=== PATIENT | male | born 1955 | race Caucasian/White ===

== ENCOUNTER 2024-10-09 12:44 | Inpatient (IN) | payer OTHER ==
[2024-10-09] MEDS ORDERED: MAGNESIUM HYDROX 2400MG/30ML ORAL SUSPENSION 30 ML CUP PO PRN (15:08)
[2024-10-09] MEDS ORDERED: IBUPROFEN 400 MG TABLET (FP) PO PRN (15:08)
[2024-10-09] MEDS ORDERED: MAG HYDROX/AL HYDROX/SIMETH 30 ML UNIT-DOSE CUP PO PRN (15:08)
[2024-10-09] MEDS ORDERED: BENZONATATE 200 MG CAPSULE PO PRN (15:08)
[2024-10-09] MEDS ORDERED: POLYETHYLENE GLYCOL (HEALTHYLAX) 3350 17 GM PACKET PO PRN (15:08)
[2024-10-09] MEDS ORDERED: LOPERAMIDE HCL 2 MG CAPSULE PO PRN (15:08)
[2024-10-09] MEDS ORDERED: NALOXONE (NARCAN) HCL 4 MG/0.1 ML SPRAY NS PRN (15:08)
[2024-10-09] MEDS ORDERED: guaiFENesin 600 MG TABLET.ER (FP) PO PRN (15:08)
[2024-10-09 16:49] VITALS: BMI 23.2
[2024-10-09 20:22] LABS: PH,URINE 7.5 (5.0-8.0); URINE APPEARANCE CLEAR; URINE BILIRUBIN NEGATIVE (NEGATIVE); URINE COLOR YELLOW; URINE GLUCOSE (UA) NEGATIVE (NEGATIVE); URINE KETONE NEGATIVE (NEGATIVE); URINE LEUK ESTERASE NEGATIVE (NEGATIVE); URINE NITRITE NEGATIVE (NEGATIVE); URINE PROTEIN NEGATIVE (NEGATIVE); URINE UROBILINOGEN 0.2 mg/dL (0.2-1.0)
[2024-10-09] MEDS: hydrOXYzine PAMOATE 25 MG CAPSULE (FP) PO PRN (21:39)
[2024-10-09] MEDS: THIAMINE 100 MG TABLET PO SCH (21:39)
[2024-10-09] MEDS: MELATONIN 5 MG TABLETS PO SCH (21:39)
[2024-10-10] MEDS: ACETAMINOPHEN 325 MG TABLET (FP) PO PRN (05:19)
[2024-10-10] MEDS: PRENATAL VITAMINS W/ FOLIC ACID TABLET (FP) PO SCH (09:21)
[2024-10-10 11:12] LABS: HEMATOCRIT 36.2 % (35.4-49); HEMOGLOBIN 12.5 GM/dL (11.7-16.9); MCH 33.4 pg (25.7-33.7); MCHC 34.6 g/dl (32.0-35.9); MEAN CELL VOLUME 96.7 fl (80-96); MEAN PLT VOLUME 7.9 fl (7.5-11.1); PLATELET COUNT 227 10^3/uL (134-434); RBC 3.75 M/mm3 (4.00-5.60); RDW 12.9 % (11.9-15.9); WHITE BLOOD COUNT 5.9 K/mm3 (4.0-10.0)
[2024-10-10 11:34] LABS: CHLORIDE 106 mmol/L (98-107); POTASSIUM 4.3 mmol/L (3.5-5.1); SODIUM 140 mmol/L (136-145)
[2024-10-10 11:38] LABS: ALBUMIN 3.1 g/dl (3.4-5.0); ANION GAP 5 mmol/L (4-13); BLOOD UREA NITROGEN 24.2 mg/dL (7-18); CALCIUM 9.4 mg/dL (8.5-10.1); CO2 29 mmol/L (21-32); GLUCOSE,RANDOM 87 mg/dL (74-106)
[2024-10-10 11:40] LABS: CREATININE 0.7 mg/dL (0.55-1.3); SGOT/AST 16 U/L (15-37); SGPT/ALT 16 U/L (13-61)
[2024-10-10 11:42] LABS: BILIRUBIN,TOTAL 0.2 mg/dL (0.2-1); TOT PROT 5.6 g/dl (6.4-8.2)
[2024-10-10 11:43] LABS: ALK PHOS 63 U/L (45-117)
[2024-10-10 11:46] LABS: SYPHILIS W/ RPR CONF NON-REACTIVE (NONREACTIVE)
[2024-10-10] MEDS: BENZOCAINE/MENTHOL (CHLORASEPTIC ) LOZENGE MM PRN (15:43)
[2024-10-10] MEDS ORDERED: OXYMETAZOLINE 0.05% NASAL SOLUTION 15 ML BOTTLE NS PRN (16:05)
[2024-10-11 11:32] LABS: INR 0.86 (0.83-1.09); PROTHROMBIN TIME (PATIENT) 9.9 SEC (9.7-13.0)
[2024-10-12] MEDS: HYDROCORTISONE 1% TOPICAL OINT 30 GM TUBE TP PRN (17:14)
[2024-10-12] MEDS ORDERED: traZODone HCL 50 MG TABLET (FP) PO PRN (22:00)
[2024-10-13] MEDS: hydrOXYzine PAMOATE 25 MG CAPSULE (FP) PO PRN (10:27)
[2024-10-18] MEDS: CHOLECALCIFEROL (VIT D3) 400 UNIT (10 MCG) TABLET PO SCH (16:33)
[2024-10-18] MEDS: NALTREXONE HCL 50 MG TABLET PO ONE (16:34)
[2024-10-19] MEDS: NALTREXONE HCL 50 MG TABLET PO SCH (10:36)
[2024-10-24] MEDS: traZODone HCL 50 MG TABLET (FP) PO PRN (01:07)
[2024-10-24] MEDS ORDERED: NALTREXONE MICROSPHERES (VIVITROL) 380 MG DISP.SYRIN IM ONE (06:00)
[2024-10-29] MEDS: BENZOCAINE 20 % GEL TUBE MM PRN (13:13)
[2024-10-29] MEDS: IBUPROFEN 600 MG TABLET (FP) PO PRN (15:36)
[2024-11-05 06:56] VITALS: RESP 16
[2024-11-06 06:29] VITALS: BP 110/69; PULSE 69; TEMP 97.3
== END 2024-11-06 10:06 | disposition home or self-care (01) | DRG 895 ==
LOC: YASAS 12:44 → Y3NR 16:55 → Y3W 10-10 10:05
PROVIDERS: ADMIT Psychiatry & Neurology Pain Medicine; ATTEND Psychiatry & Neurology Pain Medicine
PROC: HZ42ZZZ Group Counseling for Substance Abuse Treatment, Cognitive-Behavioral (ICD-10-PCS; principal; 2024-10-09)
DX: F10.20 Alcohol dependence, uncomplicated (principal); F19.282 Other psychoactive substance dependence with psychoactive substance-induced sleep disorder; F19.280 Other psychoactive substance dependence with psychoactive substance-induced anxiety disorder; F12.20 Cannabis dependence, uncomplicated; F17.210 Nicotine dependence, cigarettes, uncomplicated; F41.9 Anxiety disorder, unspecified; L40.9 Psoriasis, unspecified
CPT/HCPCS: 0241U-QW; 36415; 80053; 80305; 80307; 81003; 82140; 82652; 83735; 85027; 85610; 86780; 86803; 87811; 93005; 93010

== ENCOUNTER 2024-11-20 12:07 | Inpatient (IN) | payer OTHER ==
[2024-11-20] MEDS: SODIUM CHLORIDE 0.9% 500 ML INFUS.BAG IV ONE (13:30)
[2024-11-20] MEDS ORDERED: P-EPHED 60MG/TRIPROLIDI 2.5MG TABLET PO PRN (20:33)
[2024-11-20] MEDS ORDERED: NALOXONE (NARCAN) HCL 4 MG/0.1 ML SPRAY NS PRN (20:33)
[2024-11-20] MEDS ORDERED: MAGNESIUM HYDROX 2400MG/30ML ORAL SUSPENSION 30 ML CUP PO PRN (20:33)
[2024-11-20] MEDS ORDERED: ACETAMINOPHEN 325 MG TABLET (FP) PO PRN (20:33)
[2024-11-20] MEDS ORDERED: MAG HYDROX/AL HYDROX/SIMETH 30 ML UNIT-DOSE CUP PO PRN (20:33)
[2024-11-20] MEDS ORDERED: IBUPROFEN 400 MG TABLET (FP) PO PRN (20:33)
[2024-11-20] MEDS ORDERED: POLYETHYLENE GLYCOL (HEALTHYLAX) 3350 17 GM PACKET PO PRN (20:33)
[2024-11-20] MEDS ORDERED: BISMUTH SUBSALICYLATE 524 MG/30 ML PO PRN (20:33)
[2024-11-20] MEDS ORDERED: guaiFENesin 600 MG TABLET.ER (FP) PO PRN (20:33)
[2024-11-20] MEDS ORDERED: BENZONATATE 200 MG CAPSULE PO PRN (20:33)
[2024-11-20] MEDS ORDERED: BENZOCAINE/MENTHOL (CHLORASEPTIC ) LOZENGE MM PRN (20:33)
[2024-11-20] MEDS ORDERED: ONDANSETRON *ODT* 4 MG TABLET SL PRN (20:33)
[2024-11-20] MEDS ORDERED: NICOTINE POLACRILEX 2 MG LOZENGE BC PRN (20:33)
[2024-11-20] MEDS ORDERED: LOPERAMIDE HCL 2 MG CAPSULE PO PRN (20:33)
[2024-11-20 20:47] VITALS: BMI 22.1
[2024-11-20] MEDS: MELATONIN 5 MG TABLETS PO SCH (23:53)
[2024-11-20] MEDS: THIAMINE 100 MG TABLET PO SCH (23:53)
[2024-11-21] MEDS ORDERED: diazePAM 5 MG TABLET PO PRN (07:39)
[2024-11-21] MEDS: diazePAM 5 MG TABLET PO PRN (09:46)
[2024-11-21] MEDS: PRENATAL VITAMINS W/ FOLIC ACID TABLET (FP) PO SCH (09:47)
[2024-11-21] MEDS: diazePAM 5 MG TABLET PO ONE (09:50)
[2024-11-21] MEDS: diazePAM 5 MG TABLET PO SCH (10:55)
[2024-11-21] MEDS ORDERED: diazePAM 5 MG TABLET PO SCH (11:00)
[2024-11-21 13:42] LABS: POTASSIUM 4.4 mmol/L (3.5-5.1)
[2024-11-21 13:46] LABS: CALCIUM 9.2 mg/dL (8.5-10.1)
[2024-11-21 13:47] LABS: ALBUMIN 3.4 g/dl (3.4-5.0); BLOOD UREA NITROGEN 17.1 mg/dL (7-18)
[2024-11-21 13:50] LABS: CREATININE 0.7 mg/dL (0.55-1.3)
[2024-11-21 13:51] LABS: BILIRUBIN,TOTAL 0.5 mg/dL (0.2-1); TOT PROT 5.9 g/dl (6.4-8.2)
[2024-11-22] MEDS: hydrOXYzine PAMOATE 25 MG CAPSULE (FP) PO PRN (22:33)
[2024-11-22] MEDS: HYDROCORTISONE 1% TOPICAL CREAM 30 GM TUBE TP PRN (23:26)
[2024-11-23] MEDS: diazePAM 5 MG TABLET PO SCH (05:40)
[2024-11-23] MEDS ORDERED: diazePAM 5 MG TABLET PO SCH (06:00)
[2024-11-24] MEDS: diazePAM 5 MG TABLET PO SCH (05:48)
[2024-11-24] MEDS ORDERED: diazePAM 5 MG TABLET PO SCH (06:00)
[2024-11-25] MEDS: diazePAM 5 MG TABLET PO ONE (05:39)
[2024-11-25] MEDS ORDERED: diazePAM 5 MG TABLET PO ONE (06:00)
[2024-11-26] MEDS: NICOTINE 14 MG/24 HOURS TOPICAL PATCH TD SCH (09:58)
[2024-11-26] MEDS: NICOTINE POLACRILEX 2 MG GUM BUC PRN (21:47)
[2024-11-28] MEDS ORDERED: PRENATAL VITAMINS W/ FOLIC ACID TABLET (FP) PO PRN (12:17)
[2024-11-28] MEDS ORDERED: NICOTINE 14 MG/24 HOURS TOPICAL PATCH TD PRN (12:17)
[2024-11-30] MEDS: IBUPROFEN 600 MG TABLET (FP) PO PRN (21:33)
[2024-12-17 11:21] LABS: INR 0.95 (0.83-1.09); PROTHROMBIN TIME (PATIENT) 10.4 SEC (9.7-13.0)
[2024-12-19 06:40] VITALS: BP 102/68; PULSE 72; RESP 16; TEMP 97.8
[2024-12-19] MEDS ORDERED: CHOLECALCIFEROL (VIT D3) 400 UNIT (10 MCG) TABLET PO SCH (10:00)
== END 2024-12-19 09:28 | disposition home or self-care (01) | DRG 895 ==
LOC: YASAS 12:07 → Y6N 20:34 → Y3NR 11-25 11:26 → Y3E 11-26 09:35
PROVIDERS: ADMIT Psychiatry & Neurology Pain Medicine; ATTEND Psychiatry & Neurology Pain Medicine
PROC: HZ2ZZZZ Detoxification Services for Substance Abuse Treatment (ICD-10-PCS; 2024-11-20)
PROC: HZ42ZZZ Group Counseling for Substance Abuse Treatment, Cognitive-Behavioral (ICD-10-PCS; principal; 2024-11-25)
DX: F10.20 Alcohol dependence, uncomplicated (principal); Z59.01 Sheltered homelessness; F12.20 Cannabis dependence, uncomplicated; F17.210 Nicotine dependence, cigarettes, uncomplicated; F10.280 Alcohol dependence with alcohol-induced anxiety disorder; F10.282 Alcohol dependence with alcohol-induced sleep disorder; F41.9 Anxiety disorder, unspecified; L40.9 Psoriasis, unspecified
CPT/HCPCS: 36415; 80053; 80307; 82140; 82652; 82962; 83735; 85610; 87811; 93005; 93010